=== PATIENT | female | born 1985 | race African-American/Black ===

== ENCOUNTER 2018-06-22 21:20 | Emergency (ER) | payer BC ==
[2018-06-22 21:28] VITALS: BP 139/82
[2018-06-22] MEDS ORDERED: PENICILLIN VK 250MG PREPACK#6 BTL TAKEHOME ONE (21:39)
--- NOTE | 2018-06-22 21:39 | EDPHY ---
H & P Time Seen by Provider: 06/22/18 21:25 HPI/ROS: 33 yo F presents c/o several days of left lower molar tooth pain, no fevers or chills, no drainage. Patient states she has been taking ibuprofen approximately 800 mg 3 times a day for the pain. Review of systems As per HPI General no fever no chills no weakness HEENT no eye pain no eye discharge. No eye redness, no sore throat Respiratory no cough, no shortness of breath Cardiac no chest pain, no peripheral edema GI no abdominal pain, no diarrhea, no constipation, no nausea, no vomiting no flank pain, no hematuria, no dysuria Musculoskeletal no myalgias, no joint pain Heme no easy bruising, no easy bleeding Endo no polyuria, no polydipsia Skin no rashes, no pruritus Neuro no syncope, no dizziness, no headaches Psych is no suicidal ideation, no homicidal ideation Past Medical/Surgical History: Non contributory Social History: Denies alcohol , drug use. Smoking Status: Current some day smoker Physical Exam: 33 yo F alert and oriented , nad, non toxic appearance no facial swelling at,nc op 3rd left lower molar with caries, missing large part of tooth, mild gum redness , no swelling and no discharge no tongue elevation no pharyngeal swelling or redness tolerating own secretions neck supple, no lymphadenopathy lungs cta bilat heart rrr Constitutional: Initial Vital Signs Temperature (C) 37.0 C 06/22/18 21:26 Heart Rate 73 06/22/18 21:26 Respiratory Rate 18 06/22/18 21:26 Blood Pressure 139/82 H 06/22/18 21:26 O2 Sat (%) 98 06/22/18 21:26 O2 Delivery Mode Room Air Allergies/Adverse Reactions: No Known Allergies Allergy (Unverified 06/22/18 21:25) Home Medications: Medication Instructions Recorded Hydrocodone/Acetaminophen [[place] 1 - 2 tab PO Q6H PRN #12 tab 06/22/18 5/325 (*)] Penicillin V Potassium [Penicillin 500 mg PO QID 7 Days #28 tablet 06/22/18 VK] Medical Decision Making ED Course/Re-evaluation: pt seen and evaluated for dental pain. imp dental caries , cannot r/o peripaical abcess plan pcn vk pain medication f/u dental yvette Differential Diagnosis: Differential diagnosis considered but not limited to: Dental caries, periapical abscess, gum infection - Data Points Medications Given: Discontinued Medications Hydrocodone Bitart/Acetaminophen ([place] 5/325mg Prepack#6) 1 btl TAKEHOME EDNOW ONE Stop: 06/22/18 21:43 Last Admin: 06/22/18 21:50 Dose: 1 btl Penicillin V Potassium (Pen Vk 250 Mg Prepack#6) 1 btl TAKEHOME EDNOW ONE PRN Reason: Protocol Stop: 06/22/18 21:40 Last Admin: 06/22/18 21:55 Dose: 1 btl Departure - Departure Disposition: Home, Routine, Self-Care Clinical Impression: Pain due to dental caries Condition: Good Instructions: Penicillin V (By mouth), Hydrocodone/Acetaminophen (By mouth), Toothache (ED) Referrals: Dental Aid [Outside] - As per Instructions [facility] [Outside] - As per Instructions [facility] [Outside] - As per Instructions [facility] [Outside] - As per Instructions Prescriptions: Hydrocodone/Acetaminophen [[place] 5/325 (*)] 1 - 2 tab PO Q6H PRN #12 tab PRN Reason: Pain, Moderate Penicillin V Potassium [Penicillin VK] 500 mg PO QID 7 Days #28 tablet
[2018-06-22] MEDS ORDERED: HYDROCOD/APAP 5/325 PREPACK#6 BTL TAKEHOME ONE (21:42)
== END 2018-06-22 22:02 | disposition home or self-care (01) ==
LOC: CED 21:20
DX: K08.89 Other specified disorders of teeth and supporting structures (principal); F17.200 Nicotine dependence, unspecified, uncomplicated

== ENCOUNTER 2018-08-06 06:41 | Emergency (ER) | payer BC ==
[2018-08-06] MEDS ORDERED: ONDANSETRON DISINTEGRATING 4 MG TAB PO ONE (07:22)
--- NOTE | 2018-08-06 07:44 | EDPHY ---
H & P Time Seen by Provider: 08/06/18 07:07 HPI/ROS: This patient has had severe dental pain in the left lower molar region which had a periapical abscess by her description and was pulled on Saturday, 2 days prior to arrival. She reports ongoing pain despite that was told that she had a deep infection in the area. She was started on amoxicillin after having been on penicillin prior to the tooth being pulled. Despite compliance with Amoxil over the last 2 days she reports severe pain. She is unable tolerate hydrocodone due to vomiting associated without medication. Last dose of hydrocodone was last night but she continued to have vomiting this morning. She reports the pain is severe-10/10 intensity and she notes some mild swelling to the submental region in left mandibular region. She is accompanied by her boyfriend her brought her in by private vehicle. ROS: Constitutional: No high fevers but she has had some low-grade fevers. No chills. HEENT: She reports the pain radiates to her left ear. She denies any drainage from the ear. She has had no recent nasal congestion. No difficulty swallowing. No change in her voice Pulmonary: No complaints GI: No abdominal pain 7 point review of symptoms is performed and otherwise negative with exception of pertinent positives and negatives listed in HPI and ROS Past Medical/Surgical History: Otherwise healthy Smoking Status: Current some day smoker Physical Exam: Physical Exam Vital signs are normal. General: Pleasant black female in some distress due to pain HEENT: Nose: Clear discharge bilaterally. No sinus tenderness to percussion. Ears: External canals and tympanic membranes are clear with no erythema or abnormal findings bilaterally. Oropharynx: The patient has a socket in the left lower molar position is quite tender where the tooth was recently pulled. There is mild gingival swelling adjacent to this. She also has mild submental space swelling and left mandibular swelling on physical exam. No erythema or exudates. No dysphonia. No drooling or stridor. She maintains a Mallampati 2 airway. Eyes: Pupils equal and react to light. Extraocular motions are intact. Neck: Supple with no meningismus. No lymphadenopathy Lungs: No respiratory distress. No stridor Cardiac: Regular rate and rhythm with no murmur gallop or rub Skin: No rash or pallor. Neuro: Alert with no focal deficits noted. Initial differential diagnosis: Osteomyelitis to mandible, Froylan's angina, periodontitis, dry socket Constitutional: Initial Vital Signs Temperature (C) 37.3 C 08/06/18 06:48 Heart Rate 87 08/06/18 06:48 Respiratory Rate 16 08/06/18 06:48 Blood Pressure 167/117 H 08/06/18 06:48 O2 Sat (%) 93 08/06/18 06:48 O2 Delivery Mode Room Air Allergies/Adverse Reactions: No Known Allergies Allergy (Verified 08/06/18 06:44) Home Medications: Medication Instructions Recorded AMOXICILLIN 08/06/18 Clindamycin 300 mg PO Q8 #60 cap 08/06/18 Hydrocodone-Acetamin 5-325 mg 08/06/18 Ondansetron Odt [Zofran Odt] 4 - 8 mg PO Q4PRN PRN #4 tab 08/06/18 traMADol [Ultram 50 mg (*)] 50 - 100 mg PO Q4 PRN #12 tab 08/06/18 MDM/Departure - MDM Procedures: Dental block: Using a 27 gauge needle and a 50 50 mix of 2% lidocaine 0.5% Marcaine injected 5 mL to the gingival fold adjacent to the affected tooth with minimal partial relief in the immediate area but still ongoing deep pain in the mandible despite this. Patient tolerated this without complications or difficulties. Procedures performed by myself. I injected a 2nd 5 mL for nerve block -intra-oral at buckle fold near angle of mandible with good results - patient had relief of pain and able to fully open mouth thereafter without pain. T here were not complications Medications Given: Discontinued Medications Dexamethasone (Decadron Injection) 10 mg IVP EDNOW ONE Stop: 08/06/18 07:52 Last Admin: 08/06/18 08:08 Dose: 10 mg Clindamycin Phosphate/Dextrose (Cleocin 900 Mg (Premix)) 50 mls @ 100 mls/hr IV EDNOW ONE PRN Reason: Protocol Stop: 08/06/18 08:18 Last Admin: 08/06/18 08:07 Dose: 50 mls Ondansetron HCl (Zofran Odt) 8 mg PO EDNOW ONE Stop: 08/06/18 07:23 Last Admin: 08/06/18 07:24 Dose: 8 mg Tramadol HCl (Ultram) 100 mg PO ONCE ONE Stop: 08/06/18 07:51 Last Admin: 08/06/18 08:07 Dose: 100 mg ED Course/Re-evaluation: P.o. Zofran sublingual with relief of nausea IV clindamycin Decadron 10 mg IV Our tech then irrigated the patient's socket with saline. Patient tolerated this well CBC reveals mild leukocytosis 11,000 with left shift. Discussion: Patient with severe dental pain after removal of a lower molar that significant infection associated with the. She had very mild submental space swelling given this finding along the patient's significant symptoms proceed with more aggressive treatment of infection to cover potential early Froylan's angina or similar infections with IV clindamycin. Patient had good relief of pain from nerve block. Will plan to send her home on clindamycin, stop Amoxil, take tramadol if needed for pain and follow up with dentist for any ongoing symptoms. She understands need to return should she develop any significant worsening despite treatment plan - Depart Disposition: Home, Routine, Self-Care Clinical Impression: Pain, dental Condition: Good Instructions: Toothache (ED) Additional Instructions: Diagnosis: Dental pain You received a injection in your gum with a combination of lidocaine and Marcaine. Typically this numbness last for 4-6 hours. Plan: Stop Amoxil start clindamycin antibiotic. The should you have yogurt or probiotic or both while on this to prevent diarrhea Zofran for nausea as needed Consider tramadol for pain relief-last nauseating and hydrocodone. Try Tylenol in addition if needed for pain Follow up with her dentist for any ongoing symptoms despite treatment plan. Return for any significant worsening despite the treatment plan Prescriptions: Clindamycin 300 mg PO Q8 #60 cap Ondansetron Odt [Zofran Odt] 4 - 8 mg PO Q4PRN PRN #4 tab PRN Reason: Vomiting traMADol [Ultram 50 mg (*)] 50 - 100 mg PO Q4 PRN #12 tab PRN Reason: breakthrough pain
[2018-08-06] MEDS ORDERED: CLINDAMYCIN 900 MG/DEXTROSE 50 ML IV ONE (07:49)
[2018-08-06] MEDS ORDERED: traMADol 50 MG TAB PO ONE (07:50)
[2018-08-06] MEDS ORDERED: DEXAMETHASONE 10 MG/ML VIAL IVP ONE (07:51)
[2018-08-06] MEDS ORDERED: DEXAMETHASONE 4 MG/ML VIAL ONE (08:05)
[2018-08-06 08:42] VITALS: BP 150/89
[2018-08-06 08:51] LABS: PLATELET COUNT 295 10^3/uL (150-400)
== END 2018-08-06 09:14 | disposition home or self-care (01) ==
LOC: CED 06:41
DX: K08.89 Other specified disorders of teeth and supporting structures (principal)
CPT/HCPCS: 96365; J1100